=== PATIENT | male | born 2000 | race Caucasian/White ===

== ENCOUNTER 2021-10-29 01:09 | Emergency (ER) | payer MEDICAID ==
[~2021-10-29] VITALS: Ht 180.3 cm; Wt 113.4 kg
[2021-10-29] MEDS ORDERED: PANT40TA2 PO (01:47)
[2021-10-29] MEDS ORDERED: ASPirin 81 mg TAB PO ONE (02:00)
[2021-10-29 02:06] LABS: Basophils # (auto) 0 10 ^3/uL (0-0.2); Basophils % (auto) 0.6 % (0.0-2.0); Eosinophils # (auto) 0.1 10 ^3/uL (0-0.8); Eosinophils % (auto) 1.6 % (0.0-7.0); Hematocrit 44.1 % (41.0-53.0); Hemoglobin 15.3 g/dL (13.5-17.5); Lymphocytes # (auto) 2.2 10 ^3/uL (0.4-5.4); Lymphocytes % (auto) 35.7 % (10.0-50.0); Mean Corpuscular Hemoglobin 30.9 pg (28.0-32.0); Mean Corpuscular Hgb Conc. 34.7 g/dL (32.0-36.0); Mean Corpuscular Volume 88.9 fL (80.0-100.0); Monocytes # (auto) 0.5 10 ^3/uL (0-1.3); Monocytes % (auto) 8.3 % (0.0-12.0); Neutrophils # (auto) 3.4 10 ^3/uL (1.6-8.6); Neutrophils % (auto) 53.8 % (37.0-80.0); Nucleated Red Blood Cells % 0.1 %; Red Blood Cells 4.96 10^6/uL (4.5-5.90); Red Cell Distribution Width 13.1 % (11.8-14.3); White Blood Cell 6.3 10^3/uL (4.4-10.8)
[2021-10-29 02:28] LABS: Albumin 4.1 g/dL (3.4-5.0); BUN/Creatinine Ratio 10.8; Calcium 9.1 mg/dL (8.5-10.1)
[2021-10-29 02:31] LABS: Bilirubin, Total 0.4 mg/dL (0.2-1.0); Total Protein 7.8 g/dL (6.4-8.2)
[2021-10-29 06:05] VITALS: BP 127/76
== END 2021-10-29 06:05 | disposition home or self-care (01) ==
LOC: ER 01:09
DX: R07.89 Other chest pain (principal); K29.70 Gastritis, unspecified, without bleeding
CPT/HCPCS: 36415; 80053; 84484; 85025; 93005